=== PATIENT | male | born 1965 | race Caucasian/White ===

== ENCOUNTER 2023-10-22 11:49 | Emergency (ER) | payer MEDICAID ==
[2023-10-22] MEDS: Albuterol/Ipratropium 3.0-0.5 MG/3 ML Neb Soln NEB PRN (12:08)
[2023-10-22 12:11] LABS: BASOPHILS ABSOLUTE AUTO 0.02 K/uL (0.02-0.10); BASOPHILS PERCENT AUTO 0.2 % (0.0-0.5); EOSINOPHILS ABSOLUTE AUTO 0.08 K/uL (0.04-0.40); EOSINOPHILS PERCENT AUTO 0.9 % (1.0-5.0); HEMATOCRIT 51.4 % (40.0-54.0); HEMOGLOBIN 17.3 g/dL (13.0-18.0); LYMPHOCYTES ABSOLUTE AUTO 2.26 K/uL (1.50-4.00); LYMPHOCYTES PERCENT AUTO 25.7 % (20.0-40.0); MEAN CORPUSCULAR HGB CONC 33.7 g/dL (31.0-35.0); MEAN CORPUSCULAR VOLUME 86 fL (76-96); MEAN PLATELET VOLUME 10.2 fL (6.0-10.0); MONOCYTES ABSOLUTE AUTO 0.66 K/uL (0.20-0.80); MONOCYTES PERCENT AUTO 7.5 % (3.0-10.0); NEUTROPHILS ABSOLUTE AUTO 5.78 K/uL (2.00-7.50); NEUTROPHILS PERCENT AUTO 65.7 % (45.0-70.0); PLATELET COUNT,PLT 171 K/uL (150-400); RED BLOOD CELL COUNT 5.97 M/uL (4.50-6.50); RED CELL DISTRIBUTION WIDTH 14.4 % (11.0-16.0); WHITE BLOOD CELL COUNT,WBC 8.8 K/uL (4.0-11.0)
[2023-10-22] MEDS: GI Cocktail Oral Solution 30 ML PO ONE (12:14)
[2023-10-22 12:31] LABS: A/G RATIO 0.9 (0.8-2.0); ALBUMIN 3.5 g/dL (3.4-5.0); ANION GAP 11.5 mmol/L (5.0-15.0); BILIRUBIN TOTAL 0.7 mg/dL (0.0-1.0); CALCIUM 8.6 mg/dL (8.5-10.1); CARBON DIOXIDE,CO2 27.6 mmol/L (21.0-32.0); CREATININE 1.29 mg/dL (0.70-1.30); EST CRCL DRUG DOSING (CG) 59.65 mL/min; POTASSIUM,K 4.1 mmol/L (3.5-5.1); PROTEIN TOTAL,TP 7.3 g/dL (6.4-8.2)
[2023-10-22 12:38] LABS: APPEARANCE,URINE CLEAR (CLEAR); BILIRUBIN,URINE NEGATIVE (NEGATIVE); COLOR,URINE YELLOW; GLUCOSE,URINE NEGATIVE (NEGATIVE); KETONES,URINE NEGATIVE (NEGATIVE); LEUKOCYTE ESTERASE,URINE NEGATIVE (NEGATIVE); NITRITE,URINE NEGATIVE (NEGATIVE); OCCULT BLOOD,URINE NEGATIVE (NEGATIVE); PROTEIN,URINE NEGATIVE (NEGATIVE); UROBILINOGEN,URINE 0.2 E.U./dL (0.2-1.0)
[2023-10-22] MEDS: Aspirin 325 MG Tab.EC PO ONE (12:46)
[2023-10-22 12:56] LABS: INFLUENZA A NAA POSITIVE (NEGATIVE); INFLUENZA B NAA NEGATIVE (NEGATIVE); RESPIRATORY SYNCYTIAL VIR NAA NEGATIVE (NEGATIVE)
[2023-10-22 12:57] LABS: CORONAVIRUS COVID-19 NAA NEGATIVE (NEGATIVE)
[2023-10-22] MEDS: Heparin Sodium 5,000 Units/ML Vial IVPUSH ONE (13:40)
[2023-10-22] MEDS: Heparin Sodium/D5W 25,000 UNITS/500 ML BAG IV SCH (13:53)
[2023-10-22] MEDS: Heparin Sodium 1,000 Units/ML 10 ML MDV ONE (14:01)
[2023-10-22] MEDS: Heparin Sodium/D5W 500 ML ONE (14:01)
[2023-10-22] MEDS: Nitroglycerin 0.4 MG Tab.SL SL ONE (14:18)
[2023-10-22] MEDS: Sodium Chloride 0.9% 500 ML IV ONE (14:21)
== END 2023-10-22 15:47 ==
LOC: LB.ED 11:49
DX: J10.1 Influenza due to other identified influenza virus with other respiratory manifestations (principal); R07.9 Chest pain, unspecified; R79.89 Other specified abnormal findings of blood chemistry; J45.909 Unspecified asthma, uncomplicated; Z79.899 Other long term (current) drug therapy
CPT/HCPCS: 0241U; 36415; 71045; 80053; 81003; 84484; 85025; 85379; 85730; 93005; 94640; 96365; 96366; 99284; 99285; A9270; J1644; J7040; J7620